=== PATIENT | male | born 1970 | race American Indian/Alaskan Native ===

== ENCOUNTER 2023-12-04 14:00 | Outpatient (CLI) | payer OTHER, SELFPAY ==
--- NOTE | ~2023-12-04 | US_ITS ---
EXAMINATION: US arterial ankle brachial ind DATE: 12/04/2023 15:20 INDICATION: Peripheral vascular disease with claudication TECHNIQUE: Segmental pressures and plethysmographic and Doppler waveforms of the brachial and lower e xtremity arteries were obtained. COMPARISON: None. FINDINGS: Right and left brachial artery pressures of 132 mm Hg and 123 mm Hg, respectively, are concordant (no rmal difference <= 30 mmHg). The right ankle-brachial index (DAWIT) is 1.35 (normal >= 0.9-1.0). The right great toe-brachial index (TBI) is unable to be obtained due to prior right great toe amputation (normal >= 0.65). Arterial Dop pler waveforms are biphasic with brisk systolic upstrokes at both right posterior tibial and dorsalis pedis arteries. The left DAWIT is 1.36. The left TBI is 0.35. Arterial Doppler waveforms are biphasic with brisk systol ic upstrokes at both left posterior tibial and dorsalis pedis arteries. IMPRESSION: 1. Arterial occlusive disease to left lower limb with normal left DAWIT but moderately decreased left T BI. 2. Normal right DAWIT. Right TBI is unable to be obtained due to prior right great toe amputation. Reviewed, dictated and finalized at location A. IMPRESSION: 1. Arterial occlusive disease to left lower limb with normal left DAWIT but moder ately decreased left TBI. 2. Normal right DAWIT. Right TBI is unable to be obtained due to prior right grea t toe amputation.
== END 2023-12-04 14:01 | disposition home or self-care (01) ==
LOC: ANHIMG 14:08
PROVIDERS: PCP Family Medicine; Visit Provider Physician Assistant Medical
DX: I73.9 Peripheral vascular disease, unspecified (principal)
CPT/HCPCS: 93922

== ENCOUNTER 2024-05-12 11:40 | Outpatient (CLI) | payer OTHER, SELFPAY ==
--- NOTE | ~2024-05-12 | CT_ITS ---
CT Scan of the Chest without Contrast: Clinical Indication: Lung cancer screening, nicotine dependence Technique: Contiguous sections were acquired throughout the chest without intravenous contrast. Dose reduction technique was used on this scan by utilizing automated exposure control and iterative recon struction technique. The dose-length product (DLP) was 372.33 mGy-cm. Findings: There is no evidence of any significant mediastinal, hilar or axillary lymphadenopathy. Coronary kale ry calcifications are present. Calcified left hilar lymph node present. Minimal pericardial fluid pre sent. There is no evidence of pleural effusion. The lungs are clear. No pulmonary nodules or infiltrates are noted. Images through the upper abdomen reveal no abnormalities. Impression: Lung RADS 1: Negative. 12 month follow-up screening CT advised. Reviewed, dictated and finalized at location . Impression: Lung RADS 1: Negative. 12 month follow-up screening CT advised.
--- NOTE | ~2024-05-12 | XR_ITS ---
Lumbosacral Spine: AP and lateral views Clinical History: Pain Findings: The normal lordotic curve is maintained. No fracture or sublocation seen. There is advanced degenerative disc narrowing at L5-S1. There is moderate facet arthropathy throughout the lumbar spin e. There is mild to moderate degenerative disc change at the remaining lumbar spine levels. The sacro iliac joints are normally outlined. Impression: Moderate degenerative spondylosis, as above. Reviewed, dictated and finalized at location M. Impression: Moderate degenerative spondylosis, as above.
--- NOTE | ~2024-05-12 | XR_ITS ---
Cervical Spine: AP, lateral, open-mouth views Clinical History: Pain Findings: The normal lordotic curve is maintained. The vertebral bodies and posterior elements appea r intact. The intervertebral disc spaces are well maintained. Pre-vertebral soft tissues are unremar kable. Impression: No significant abnormality is seen. Reviewed, dictated and finalized at [facility]. Impression: No significant abnormality is seen.
== END 2024-05-12 11:41 ==
LOC: MICIMG 11:40
PROVIDERS: PCP Family Medicine; Visit Provider Physician Assistant Medical
DX: Z12.2 Encounter for screening for malignant neoplasm of respiratory organs (principal); F17.210 Nicotine dependence, cigarettes, uncomplicated; M47.897 Other spondylosis, lumbosacral region; I73.9 Peripheral vascular disease, unspecified
CPT/HCPCS: 71271; 72040; 72100